=== PATIENT | male | born 1985 | race African-American/Black ===

== ENCOUNTER 2016-11-04 04:00 | Inpatient (IN) | payer MEDICAID ==
--- NOTE | ~2016-11-04 | PA ---
Unit #: [id number] #: [id number] Patient: JOSE ANGEL DUNCAN [id number] [facility] [address] [place] [address] [id number] I MR#: [id number] NAME: JOSE ANGEL DUNCAN. ROOM: [facility] Age: 30 Sex: M Admission Date: 11/04/2016 : 1985 Date of Assessment: 11/04/2016 Attending Physician: Tacos Garza M.D. Admitting Physician: Tacos Garza M.D. Primary Care Physician: Primary Care Physician No PSYCHIATRIC ASSESSMENT IDENTIFYING INFORMATION The patient is a 30-year-old male admitted to the [address] [place] [address] unit with positive suicidal ideation. INFORMANT(S) Patient. RELIABILITY Good. CHIEF COMPLAINT None given. HISTORY OF PRESENT ILLNESS The patient is a 30-year-old male last treated by this physician at this facility in 2012. The patient has been incarcerated since that time but has been out for several months. He reports that "he and his got into it" and she had hidden his psychotropic medications which includes Seroquel, BuSpar, Depakote and Thorazine. The patient also takes Dilantin for seizure disorder. The patient states that he had "tried to do it alone" but was unable to do so and was reporting positive suicidal ideation when admitted. He denied any homicidal ideation or visual hallucinations. The patient does report a history of substance abuse including use of alcohol. 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 Patient does have a history of seizure and CVA. PAST PSYCHIATRIC HISTORY As noted previously, the patient was last hospitalized at this facility 4 years ago. He was prescribed medications while incarcerated as described previously. FAMILY HISTORY Noncontributory. SOCIAL HISTORY The patient lives with his . He reports that the 2 have reconciled to some degree. He reports heavy alcohol use and denies abuse of other psychoactive substances. He is a smoker. MEDICAL HISTORY Significant for a history of seizure disorder and CVA. Unit #: [id number] #: [id number] Patient: JOSE ANGEL DUNCAN MEDICATION HISTORY 1. Seroquel. 2. Dilantin. 3. BuSpar. 4. Depakote. 5. Thorazine. ALLERGIES Latex. MENTAL STATUS EXAM At this time, reveals the patient to be a well-developed, well-nourished male appearing his stated age. He is in no apparent physical distress at the time of the examination. He is awake, alert, oriented in all spheres. His mood is mildly dysphoric. His affect constricted. Speech is generally relevant and coherent. There are no gross deficits in memory or cognition noted. Intelligence is judged to be in the average range based on fund of knowledge. The patient is cooperative throughout the interview. He is currently endorsing positive suicidal ideation. He denies homicidal ideation. He denies any psychotic symptoms. His judgement and insight appear to be intact. ASSETS AND LIABILITIES Patient's assets, motivation for change. Liabilities, poor compliance with treatment. ADMITTING DIAGNOSES 1. Schizoaffective disorder. 2. Seizure disorder. 3. Alcohol use disorder. PSYCHIATRIC PLAN/TREATMENT GOALS The patient remains hospitalized for safety and stabilization. We will restart previously prescribed medications and the patient will be transferred to the [facility] or [address] [place] [address] unit to address his symptoms of substance use. ESTIMATED LENGTH OF STAY Five to seven days. Dictated by... Tacos Garza M.D. CARLOS ENRIQUE/may TD: 11/04/2016 15:45 JOB #: [id number] Unit #: [id number] #: [id number] Patient: JOSE ANGEL DUNCAN PSYCHIATRIC ASSESSMENT Page 1 of 1 X Tacos Garza MD PSYCHIATRIC ASSESSMENT
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
--- NOTE | ~2016-11-04 | DS ---
Unit #: [id number] #: [id number] Patient: JOSE ANGEL DUNCAN [id number] [facility] [address] [place] [address] [id number] I MR#: [id number] NAME: JOSE ANGEL DUNCAN. ROOM: P203 Age: 30 Sex: M Admission Date: 11/04/2016 : 1985 Discharge Date: 11/05/2016 Attending Physician: Tacos Garza M.D. Primary Care Physician: Primary Care Physician No DISCHARGE SUMMARY REASON FOR ADMISSION The patient is a 30-year-old male, admitted to the hospital with recurrent suicidal ideation and auditory hallucinations after a period of medication noncompliance. HOSPITAL COURSE The patient was admitted to the [address] [place] [address] unit, but transferred to the [address] [place] [address] unit per his request, given a history of substance abuse. The patient was restarted on previously prescribed medications including Thorazine, Seroquel, and Depakote and his stay in the hospital was a brief and uneventful one. By 11/05/2016, the patient was requesting discharge and it was so ordered. FINAL DIAGNOSES Schizoaffective disorder, alcohol use disorder, seizure disorder. DISPOSITION ON DISCHARGE The patient is discharged on the following medications; Seroquel 600 mg at bedtime for mood stabilization, BuSpar 30 mg b.i.d. for anxiety, Depakote 250 mg b.i.d. for seizure disorder, Thorazine 100 mg at bedtime for psychosis, and Dilantin 300 mg at bedtime for seizure disorder. DISCHARGE INSTRUCTIONS No dietary or physical restrictions were placed upon the patient at the time of discharge. FOLLOWUP Followup will take place through the auspices of community mental health resources. PROGNOSIS The patient's prognosis is considered fair. Dictated by... Tacos Garza M.D. CB/wilfred TD: 11/09/2016 02:15 JOB #: [id number] Unit #: [id number] #: [id number] Patient: JOSE ANGEL DUNCAN DISCHARGE SUMMARY Page 1 of 1 X Tacos Garza MD X DISCHARGE SUMMARY
[~2016-11-04 04:00] MED LIST: COGENTIN; DEPAKOTE PO; FLONASE16 GM; HCTZ PO; SEROQUEL PO; TEGRETOL; THORAZINE
[2016-11-05 09:58] LABS: BASOPHIL% 0.4 % (0-2.5); EOSINOPHIL# 0.2 X10e3 (0-0.7); EOSINOPHIL% 3.2 % (0.0-7.0); HEMATOCRIT 40.7 % (38.0-50.0); HEMOGLOBIN 13.6 gm/dL (13.0-16.0); LYMPHOCYTE% 26.7 % (17.0-45.0); MEAN CELL VOLUME 90.2 FL (83-96); MEAN CORPUSCULAR HEMOGLOBIN 30.1 PG (28-34); MEAN CORPUSCULAR HGB CONC 33.4 g/dL (30-36); MEAN PLATELET VOLUME 8.9 FL (6.5-11.5); MONOCYTE# 0.4 X10e3 (0-1.0); NEUTROPHIL# 4.7 X10e3 (1.5-7.1); NEUTROPHIL% 64.7 % (40-75); PLATELET COUNT 213 X10e3 (140-420); RED BLOOD COUNT 4.52 X10e (3.90-5.60); RED CELL DISTRIBUTION WIDTH 12.1 % (11.0-15.5); WHITE BLOOD COUNT 7.3 X10e3 (4.0-10.5)
[2016-11-05 09:59] LABS: DIFF IND NO
[2016-11-05 10:11] LABS: ALBUMIN SERUM 4.1 g/dL (3.5-5.0); BILIRUBIN,TOTAL 0.5 mg/dL (0.2-2.0); CALCIUM SERUM 8.9 mg/dL (8.4-10.2); CREATININE SERUM 0.6 mg/dL (0.6-1.4); GLOM FILT RATE Estimated 156.4 mL/min (>60); PROTEIN TOTAL SERUM 7.4 g/dL (6.0-8.3)
[2016-11-06 14:39] LABS: URINE APPEARANCE CLEAR; URINE BILIRUBIN NEG (NEG); URINE BLOOD NEG (NEG); URINE COLOR DK YELLOW; URINE GLUCOSE 250 MG/DL (NEG); URINE KETONE NEG (NEG); URINE LEUKOCYTE ESTERASE NEG (NEG); URINE NITRATE NEG (NEG); URINE PROTEIN NEG (NEG); URINE SPECIFIC GRAVITY 1.026 (1.003-1.035)
== END 2016-11-05 15:46 | DRG 885 ==
LOC: P2S 09:54 → P1S 09:54 → P2S 16:21
PROVIDERS: Specialist
DX: F25.9 Schizoaffective disorder, unspecified (principal); G40.909 Epilepsy, unspecified, not intractable, without status epilepticus; R45.851 Suicidal ideations; F10.10 Alcohol abuse, uncomplicated; Z91.040 Latex allergy status; Z86.73 Personal history of transient ischemic attack (TIA), and cerebral infarction without residual deficits; Z91.14 Patient's other noncompliance with medication regimen
CPT/HCPCS: 80053; 80185; 81003; 85025

== ENCOUNTER 2016-11-16 03:11 | Emergency (ER) | payer OTHER ==
--- NOTE | ~2016-11-16 | EKG ---
PATIENT: JOSE ANGEL DUNCAN UNIT #: [id number] Ventricular Rate: 101 BPM Atrial Rate: 101 BPM P-R Interval: 172 ms QRS Duration: 82 ms Q-T Interval: 338 ms QTC Calculation(Bezet): 438 ms P [place]: 28 degrees Calculated R [place]: 2 degrees Calculated T [place]: 33 degrees Diagnosis Line: Sinus tachycardia Diagnosis Line: Otherwise normal ECG Diagnosis Line: When compared with ECG of 06-NOV-2011 03:53, Diagnosis Line: No significant change was found Diagnosis Line: Confirmed by STEVEN GARCIA MD ([id number]) on 11/17/2016 Diagnosis Line: 7:10:38 PM INTERPRETING MD: RADHA AVILA
--- NOTE | ~2016-11-16 | CR72 ---
[facility] A Service of [facility] & [facility] RADIOLOGY TEXT RESULTS PATIENT: JOSE ANGEL DUNCAN LOCATION: [facility] : 85 UNIT #: [id number] AGE: [address]: Lis Coleman MD SEX: M ORDER DR: [id number] [facility] [address] [facility]. [place], [place] [address] [id number] MR#: [id number] Acc #: [id number] NAME: JOSE ANGEL DUNCAN. : 1985 SEX: M STUDY DATE/TIME: 11/16/2016 5:02 UNIT: [facility] ROOM: STUDY DESCRIPTION: CR Chest Single View Portable Attending Physician: Lis Coleman M.D. Ordering Physician: Du Judd Aprn Primary Care Physician: Primary Care Physician No MEDICAL IMAGING REPORT This report is preliminary unless electronic signature is present EXAM Portable chest HISTORY Left side chest pain and shortness of air today. FINDINGS Cardiac size and pulmonary vascularity are normal. [id number]-[id number] mid right thoracic curve. No infiltrates or effusions. IMPRESSION No acute findings. Dictated by... Korey Maurice M.D. THIS IS AN ELECTRONICALLY VERIFIED REPORT Korey Maurice M.D. at 11/17/2016 4:19 AM Suzie TD: 11/16/2016 09:22 JOB #: [id number] MEDICAL IMAGING REPORT Page 1 of 1 COPY
[2016-11-16 05:19] LABS: BASOPHIL% 0.4 % (0-2.5); EOSINOPHIL# 0.3 X10e3 (0-0.7); EOSINOPHIL% 3.1 % (0.0-7.0); HEMATOCRIT 38.5 % (38.0-50.0); HEMOGLOBIN 13.2 gm/dL (13.0-16.0); LYMPHOCYTE# 1.7 X10e3 (1.0-3.5); LYMPHOCYTE% 18.1 % (17.0-45.0); MEAN CELL VOLUME 89.7 FL (83-96); MEAN CORPUSCULAR HEMOGLOBIN 30.8 PG (28-34); MEAN CORPUSCULAR HGB CONC 34.4 g/dL (30-36); MEAN PLATELET VOLUME 7.8 FL (6.5-11.5); MONOCYTE# 0.8 X10e3 (0-1.0); NEUTROPHIL# 6.7 X10e3 (1.5-7.1); NEUTROPHIL% 70.4 % (40-75); PLATELET COUNT 269 X10e3 (140-420); RED BLOOD COUNT 4.29 X10e (3.90-5.60); RED CELL DISTRIBUTION WIDTH 12.8 % (11.0-15.5); WHITE BLOOD COUNT 9.5 X10e3 (4.0-10.5)
[2016-11-16 05:20] LABS: DIFF IND NO
[2016-11-16 05:30] LABS: POC - CKMB 7.9 ng/mL (0.0-7.9); POC - TROPONIN <0.05 ng/mL (<=0.05)
[2016-11-16 05:54] LABS: ALBUMIN SERUM 3.8 g/dL (3.5-5.0); ALKALINE PHOSPHATASE 52 U/L (32-92); ALT (SGPT) 56 U/L (10-40); AST (SGOT) 52 U/L (10-42); BILIRUBIN,TOTAL 0.5 mg/dL (0.2-2.0); CALCIUM SERUM 8.8 mg/dL (8.4-10.2); CARBON DIOXIDE 27 mmol/L (22-31); CHLORIDE 103 mmol/L (100-111); CREATININE SERUM 0.6 mg/dL (0.6-1.4); GLOM FILT RATE Estimated 156.4 mL/min (>60); GLUCOSE FASTING 109 mg/dL (70-110); POTASSIUM 3.4 mmol/L (3.5-5.1); PROTEIN TOTAL SERUM 6.9 g/dL (6.0-8.3); SODIUM 139 mmol/L (135-145)
[2016-11-16 05:55] LABS: BILIRUBIN, DIRECT <0.1 mg/dL (0.0-0.2); BILIRUBIN,INDIRECT 0.4 mg/dL (0.0-0.9); BLOOD UREA NITROGEN <5 mg/dL (9-23); BUN/CREATININE RATIO 8.33
[2016-11-16 07:03] LABS: POC - CKMB 3.8 ng/mL (0.0-7.9); POC - TROPONIN <0.05 ng/mL (<=0.05)
== END 2016-11-16 07:32 | disposition home or self-care (01) ==
LOC: CED 03:11
PROVIDERS: Emergency Medicine; Nurse Practitioner Family
DX: R07.9 Chest pain, unspecified (principal); J45.909 Unspecified asthma, uncomplicated; F41.9 Anxiety disorder, unspecified; F25.9 Schizoaffective disorder, unspecified; F17.210 Nicotine dependence, cigarettes, uncomplicated; Z91.040 Latex allergy status; Z79.899 Other long term (current) drug therapy
CPT/HCPCS: 36415; 71010; 80048; 80076; 82553; 84484; 85025; 93005; 96361; 96374; 99285; J1885

== ENCOUNTER 2016-11-19 00:14 | Emergency (ER) | payer OTHER ==
[~2016-11-19] VITALS: Ht 170.2 cm; Wt 99.8 kg
--- NOTE | ~2016-11-19 | EKG ---
PATIENT: JOSE ANGEL DUNCAN UNIT #: [id number] Ventricular Rate: 93 BPM Atrial Rate: 93 BPM P-R Interval: 164 ms QRS Duration: 78 ms Q-T Interval: 348 ms QTC Calculation(Bezet): 432 ms P [place]: 57 degrees Calculated R [place]: -2 degrees Calculated T [place]: 30 degrees Diagnosis Line: Normal sinus rhythm Diagnosis Line: Low voltage QRS Diagnosis Line: Otherwise normal ECG Diagnosis Line: When compared with ECG of 19-NOV-2016 00:50, Diagnosis Line: (unconfirmed) Diagnosis Line: No significant change was found Diagnosis Line: Confirmed by HORACIO BURDEN MD ([id number]) on 11/19/2016 Diagnosis Line: 5:50:02 PM INTERPRETING MD: JENISE AVILA
== END 2016-11-19 04:05 | disposition home or self-care (01) ==
LOC: CED 00:14
DX: R07.89 Other chest pain (principal); F25.9 Schizoaffective disorder, unspecified; F17.200 Nicotine dependence, unspecified, uncomplicated; Z91.040 Latex allergy status; Z79.899 Other long term (current) drug therapy
CPT/HCPCS: 82947; 93005; 99284

== ENCOUNTER 2016-11-30 03:00 | Inpatient (IN) | payer OTHER ==
[~2016-11-30] VITALS: Ht 170.2 cm; Wt 99.8 kg
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
--- NOTE | ~2016-11-30 | HP ---
Unit #: [id number] #: [id number] Patient: JOSE ANGEL DUNCAN [id number] [place] [address] [id number] MR#: [id number] NAME: JOSE ANGEL DUNCAN. ROOM: P258 Age: 31 Sex: M Admission Date: 11/30/2016 : 1985 Attending Physician: Tacos Garza M.D. Admitting Physician: Tacos Garza M.D. Primary Care Physician: Carlos Doctor Not In System HISTORY AND PHYSICAL HISTORY OF PRESENT ILLNESS Jose Angel is a 31 year old admitted to [address] [place] [address] with depression and verbalizing wanting to hurt himself. PAST MEDICAL HISTORY 1. Long history of polysubstance abuse. He continues to use. 2. Seizure disorder. 3. Asthma. 4. Diabetes mellitus. PAST SURGICAL HISTORY Right arm requiring skin graft. ALLERGIES Latex. SOCIAL HISTORY He smokes less than one pack per day. He continues to drink, use marijuana and cocaine and heroin. FAMILY HISTORY Medically noncontributory. REVIEW OF SYSTEMS CONSTITUTIONAL: No fever or chills. HEENT: Denies any sore throat, ear pain or runny nose. CARDIOVASCULAR: Denies chest pain, irregular heart rhythm or palpitations. CHEST: Denies shortness of breath or cough. No hemoptysis. GASTROINTESTINAL: Denies nausea, vomiting, diarrhea or chronic constipation. ENDOCRINE: Denies history of increased thirst or urination. No recent significant weight loss or gain. GENITOURINARY: Denies dysuria, frequency, or hematuria. SKIN: Denies any rashes. HEMATOLOGIC: Denies history of increased bleeding or bruising. MUSCULOSKELETAL: Denies any hot, swollen joints. No generalized muscle pain. NEUROLOGIC: Denies problems with vision or speech. No frequent, severe headaches. No numbness, tingling or weakness in any extremities. Denies loss of bladder or bowel control. CURRENT MEDICATIONS 1. Dilantin 100 mg q.a.m., 300 mg q.h.s. Unit #: [id number] #: [id number] Patient: JOSE ANGEL DUNCAN 2. Thorazine 100 mg q.h.s. 3. Seroquel 600 mg q.h.s. 4. Depakote 250 mg b.i.d. 5. BuSpar 30 mg b.i.d. 6. Milk of Magnesia p.r.n. 7. Maalox p.r.n. 8. Tylenol p.r.n. 9. Nicotine patch 7 mg q day PHYSICAL EXAMINATION GENERAL: Alert, well-nourished, in no apparent distress. VITAL SIGNS: Blood pressure 115/64, heart rate 80, respirations 16, temperature 98.6. WEIGHT: 220. HEIGHT: 5 foot 7 inches. SKIN: Warm and dry without rash or lesion. HEENT: Normocephalic. TMs not viewed. Oral and nasal passages clear. Conjunctivae clear. Pupils equal, round and reactive to light and accommodation. Extraocular movements intact. NECK: Supple without lymphadenopathy or thyromegaly. HEART: Regular rate and rhythm without murmur. LUNGS: Clear. ABDOMEN: Soft, nontender. : Not done. EXTREMITIES: No evidence of cyanosis, clubbing or edema. Moves all extremities without focal deficit. NEUROLOGICAL: Grossly within normal limits. Cranial Nerves: II: Visual dougherty are intact. III, IV AND : Extraocular movements are intact. Pupils are equal, round and reactive to light. V: Facial sensation is grossly normal. VII: Facial movements and expression are normal. VIII: Auditory acuity grossly intact. IX, X: Uvula is midline. Phonation is normal. XI: Patient shrugs shoulders and turns head normally. XII: Tongue protrudes in the midline. Sensory and Motor Function: Sensory and motor sensation is grossly normal. Motor: moves all extremities well. Coordination: Gait is normal. Deep Tendon Reflexes: Intact. IMPRESSION Psychiatric admission. RECOMMENDATIONS PSYCHIATRIC: Per psychiatrist. MEDICAL: I see no contraindications to participating in facility's activities. MEDICAL PROGNOSIS Good. MEDICAL CONDITION Stable. Unit #: [id number] #: [id number] Patient: JOSE ANGEL DUNCAN Dictated by... Lea Lucas P.A.-C. for Nicole Carlos/ricky TD: 11/30/2016 19:40 JOB #: [id number] HISTORY AND PHYSICAL Page 1 of 1 X Lea Lucas X HISTORY AND PHYSICAL
--- NOTE | ~2016-11-30 | DS ---
Unit #: [id number] #: [id number] Patient: JOSE ANGEL DUNCAN [id number] [facility] [address] [place] [address] [id number] MR#: [id number] NAME: JOSE ANGEL DUNCAN. ROOM: P258 Age: 31 Sex: M Admission Date: 11/30/2016 : 1985 Discharge Date: 12/01/2016 Attending Physician: Tacos Garza M.D. Primary Care Physician: Generic Doctor Not In System DISCHARGE SUMMARY REASON FOR ADMISSION The patient is a 31-year-old male, admitted with recurrence of suicidal ideation and auditory hallucinations following a period of medication noncompliance. HOSPITAL COURSE The patient was admitted to the [facility] unit and placed on suicide precautions. He was restarted on previously prescribed medications and showed rapid response. He exhibited no signs or symptoms of withdrawal and was bright and pleasant in his interactions with peers and staff. By 12/01/2016, the patient was requesting discharge and did not appear to meet criteria for involuntary hospitalization and as per his request, discharge was ordered. FINAL DIAGNOSES Schizoaffective disorder, polysubstance dependence by history, and seizure disorder. DISPOSITION ON DISCHARGE The patient is discharged on the following medications; BuSpar 30 mg b.i.d. for anxiety, Depakote 250 mg b.i.d. for mood stabilization, Seroquel 600 mg at bedtime for psychosis, Dilantin 100 mg q.a.m. and 300 mg at h.s. for seizure disorder, Thorazine 100 mg at bedtime for psychosis, and Symbicort 2 puffs b.i.d. p.r.n. insomnia. DISCHARGE INSTRUCTIONS No dietary or physical restrictions were placed on the patient at the time of discharge. FOLLOWUP Followup will take place through the auspices of community mental health resources. Dictated by... Tacos Garza M.D. CB/wilfred TD: 12/01/2016 19:22 JOB #: [id number] Unit #: [id number] #: [id number] Patient: JOSE ANGEL DUNCAN DISCHARGE SUMMARY Page 1 of 1 X Tacos Garza MD DISCHARGE SUMMARY
[2016-12-01 09:57] LABS: DEPAKENE (VALPROIC ACID) 18 ug/mL (50-125); DILANTIN (PHENYTOIN) <2.5 ug/mL (10.0-20.0)
[2016-12-01 12:43] LABS: URINE APPEARANCE CLEAR; URINE BILIRUBIN NEG (NEG); URINE BLOOD NEG (NEG); URINE COLOR YELLOW; URINE GLUCOSE NEG (NEG); URINE KETONE NEG (NEG); URINE LEUKOCYTE ESTERASE TRACE (NEG); URINE NITRATE NEG (NEG); URINE PROTEIN NEG (NEG); URINE SPECIFIC GRAVITY 1.018 (1.003-1.035); URINE UROBILINOGEN 0.2 MG/DL (NEG)
[2016-12-01 12:48] LABS: URBCS1 AUWI 0-2 /[HPF] (0-2); URINE BACTERIA AUWI NEG (NEGATIVE); URINE SQUAMOUS EPITHELIAL CELL NONE SEEN /[HPF]
== END 2016-12-01 14:15 | disposition home or self-care (01) | DRG 885 ==
LOC: P2L 06:51
PROVIDERS: Specialist
DX: F25.9 Schizoaffective disorder, unspecified (principal); F13.20 Sedative, hypnotic or anxiolytic dependence, uncomplicated; F12.20 Cannabis dependence, uncomplicated; Z91.040 Latex allergy status; Z91.018 Allergy to other foods; G40.909 Epilepsy, unspecified, not intractable, without status epilepticus
CPT/HCPCS: 80164; 80185; 81003; 82947